=== PATIENT | male | born 1965 | race Caucasian/White ===

== ENCOUNTER → 2019-05-11 10:14 | Outpatient (CLI) | payer OTHER, SELFPAY ==
[2019-05-11 11:00] LABS: Basophils # 0.1 K/mm3 (0-0.2); Basophils % 0.8 % (0.1-2.0); Eosinophils # 0.3 K/mm3 (0.0-0.4); Eosinophils % 2.9 % (0.1-12.0); Hematocrit 46.9 % (42.0-52.0); Hemoglobin 15.9 g/dL (14.1-18.0); Lymphocytes # 3.3 K/mm3 (0.7-4.5); Mean Corpuscular HGB Conc 33.9 g/dL (31.8-35.4); Mean Corpuscular Hemoglobin 31.8 pg (27.0-31.2); Mean Corpuscular Volume 93.8 fl (80-94); Mean Platelet Volume 8.4 fl (7.4-10.4); Monocytes # 0.7 K/mm3 (0.1-1.0); Monocytes % 6.8 % (1.7-9.3); Neutrophils # 5.6 K/mm3 (1.8-7.8); Neutrophils % 56.5 % (37.0-80.0); Platelet Count 256 K/mm3 (142-424); Red Cell Distribution Width 13.5 % (11.5-17.5); White Blood Count 9.9 K/mm3 (4.8-10.8)
[2019-05-11 11:29] LABS: Blood Urea Nitrogen 17 mg/dL (7-18); Carbon Dioxide 25 mmol/L (21.0-32.0); Creatinine,Serum 0.91 mg/dL (0.70-1.30); Estimated Glomerular Filt Rate 86 ml/min (>60); GFR (African American) 105 ML/MIN (>60); Glucose 106 mg/dL (74-106)
[2019-05-11 12:19] LABS: Anion Gap 14.4 mEq/L (5-15); Chloride 105 mmol/L (98-107); Potassium 4.4 mmoL/L (3.5-5.1); Sodium 140 mmol/L (136-145)
== END ==
PROVIDERS: PCP Family Medicine; Visit Provider Surgery
DX: Z01.818 Encounter for other preprocedural examination (principal); K40.90 Unilateral inguinal hernia, without obstruction or gangrene, not specified as recurrent
CPT/HCPCS: 36415; 80048; 85025

== ENCOUNTER → 2019-05-15 09:47 | Outpatient (CLI) | payer OTHER, SELFPAY ==
--- NOTE | 2019-05-15 09:59 | XR_ITS ---
PROCEDURE: XR CHEST 2V CLINICAL HISTORY: SMOKER, PRE OP Smoker, history of bronchitis COMPARISON: None made available FINDINGS: The cardiomediastinal silhouette and pulmonary vascularity are within normal limits. COPD with chronic changes. Blebs are present in the right apex. No lobar consolidation or collapse is evident. Degenerative changes are present in the thoracic spine. No acute bony abnormalities. IMPRESSION: COPD with chronic changes, no acute finding Dictated by: Filippo Spear MD 05/15/2019 18:03 Electronically signed by Filippo Spear MD in [place] 05/15/2019 18:03
== END ==
PROVIDERS: PCP Family Medicine; Visit Provider Surgery
DX: Z01.818 Encounter for other preprocedural examination (principal); K40.90 Unilateral inguinal hernia, without obstruction or gangrene, not specified as recurrent
CPT/HCPCS: 71046

== ENCOUNTER → 2019-08-17 09:50 | Outpatient (CLI) | payer OTHER, SELFPAY ==
[2019-08-17 11:43] LABS: Blood Urea Nitrogen 16 mg/dL (7-18); Creatinine,Serum 1.02 mg/dL (0.70-1.30); Estimated Glomerular Filt Rate 76 ml/min (>60); GFR (African American) 92 ML/MIN (>60)
== END ==
PROVIDERS: Visit Provider Surgery
DX: Z01.818 Encounter for other preprocedural examination (principal)
CPT/HCPCS: 36415; 82565; 84520

== ENCOUNTER → 2019-08-27 10:25 | Outpatient (CLI) | payer OTHER, SELFPAY ==
--- NOTE | 2019-08-27 10:33 | CT_ITS ---
PROCEDURE: CT PELVIS W CON CLINICAL INDICATION: rt inguinal pain after hernia surgery COMPARISON: No exams were available for comparison TECHNIQUE: Axial images obtained with sagittal and coronal reformats. All CT scans at the facility use one or more dose reduction, viz: automated exposure control, ma/kV adjustment per patient size (including targeted exams where dose is matched to indication, i.e. head), or iterative reconstruction technique. FINDINGS: Bony pelvis: There is evidence of deformity and flattening of the femoral heads bilaterally. There is associated overall widening of the acetabular fossa a especially on the left side and there is subchondral sclerosis along the roof of the left acetabulum. Also noted is mixed lucent and sclerotic areas in the subchondral left femoral head. Hips:See above. Sacrum/coccyx: Unremarkable as visualized. No acute fracture. Soft tissues:There is a clip at the right inguinal area and just anterior to the clip which is anterior to the right common femoral vein there is a hypodense rounded focus measuring 2.9 centimeters in greatest diameter. There is some stranding around this area as well. There is no associated air density within the probable fluid collection. The remainder of the soft tissues are unremarkable. Other findings: No other pertinent findings IMPRESSION: At the right inguinal surgical site there is perhaps a seroma or old hematoma with some residual edema or fibrosis. Abnormal hips with chronic appearing femoral head deformities which could be congenital. 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 Dictated by: Alexis Gary 08/27/2019 11:52 Electronically signed by Alexis Gary in [facility] 08/27/2019 11:52
== END ==
PROVIDERS: PCP Family Medicine; Visit Provider Surgery
DX: K40.90 Unilateral inguinal hernia, without obstruction or gangrene, not specified as recurrent (principal); Z87.19 Personal history of other diseases of the digestive system; Z98.890 Other specified postprocedural states
CPT/HCPCS: 72193; Q9967

== ENCOUNTER → 2021-02-18 10:14 | Outpatient (CLI) | payer OTHER, SELFPAY ==
--- NOTE | 2021-02-18 10:20 | XR_ITS ---
PROCEDURE: XR LUMBAR SPINE MIN 4V XR hip left 2-3 views with pelvis CLINICAL INDICATION: LUMBAGO W/ SCIATICA, LT SIDE COMPARISON: CT CT PELVIS W CON from 08/27/2019 CR XR HIP LT 2-3V W/PELVIS from 02/18/2021 FINDINGS: Five views of the lumbar spine are obtained. Moderate to severe degenerative change of L5-S1 with moderate diffuse degenerative change elsewhere throughout the lumbar spine. Moderate bilateral facet spondylosis of L4-5 and L5-S1. SI joints are normal. Slight levoscoliosis. Cholecystectomy clips are present. Views of the pelvis and left hip show chronic deformity of left femoral head consistent with changes of chronic avascular necrosis. Moderate to severe degenerative changes of both hip joints. Joint. SI joints are normal. No pelvic soft tissue abnormality. IMPRESSION: Moderate to severe degenerative change of L5-S1 with moderate diffuse degenerative change elsewhere throughout the lumbar spine and some bilateral facet spondylosis of L4-5 and L5-S1. Chronic deformity of the left femoral head consistent with changes of chronic avascular necrosis with moderate to severe degenerative changes of both hip joints. No acute fracture or dislocation of the pelvis or hips. Dictated by: Saulo Beck MD 02/18/2021 12:45 Saulo Beck MD in [facility] 02/18/2021 12:45
== END ==
LOC: RAD 10:16
PROVIDERS: PCP Family Medicine; Visit Provider Family Medicine
DX: M25.552 Pain in left hip (principal); M54.42 Lumbago with sciatica, left side
CPT/HCPCS: 72110; 73502

== ENCOUNTER → 2021-03-03 07:33 | Outpatient (CLI) | payer OTHER, SELFPAY ==
--- NOTE | 2021-03-03 07:43 | ECG_ITS ---
APPROVED REPORT Exam: Resting ECG HR:55 bpm ECG Measurements Heart Rate 55 AXES WI 158 P 59 QRSd 122 QRS 46 QT 428 T 56 QTc 409 Conclusion Sinus bradycardia Right bundle branch block Abnormal ECG Electronically signed by : Dudley Yeager, 03/03/2021 21:17:42
--- NOTE | 2021-03-03 07:44 | XR_ITS ---
PROCEDURE: XR CHEST 2V CLINICAL HISTORY: TOBACCO USE,SOB Smoker COMPARISON: DX XR CHEST 2V from 05/15/2019 FINDINGS: The cardiomediastinal silhouette and pulmonary vascularity are within normal limits. COPD with chronic changes. There are biapical blebs right more extensive than left. There is chronic coarsening of the bronchovascular markings which may be related to smoking related lung disease. Pleural thickening is noted on the right along the lateral hemithorax. No lobar consolidation or collapse. There are degenerative changes in the thoracic spine. No acute bony abnormalities. IMPRESSION: COPD with chronic changes. No change with no acute finding. Dictated by: Filippo Spear MD 03/03/2021 12:56 Filippo Spear MD in [place] 03/03/2021 12:56
[2021-03-03 07:58] LABS: Microscopic, Urine URINE MICROSCOPIC (MICROSCOPIC)
[2021-03-03 08:31] LABS: Appearance,Urine CLEAR (Clear); Bilirubin,Urine Negative (Negative); Blood, Urine Negative (Negative); Color,Urine YELLOW (Yellow); Glucose,Urine (UA) Negative (Negative); Ketones,Urine Negative (Negative); Leukocyte Esterase,Urine 1+ (Negative); Nitrate,Urine Negative (Negative); PH,Urine 5.5 (5.0-8.5); Protein,Urine Negative (Negative); Specific Gravity, Urine 1.025 (1.005-1.030)
[2021-03-03 08:40] LABS: Basophils # 0.1 K/mm3 (0-0.2); Basophils % 1.3 % (0.1-2.0); Eosinophils # 0.4 K/mm3 (0.0-0.4); Eosinophils % 3.9 % (0.1-12.0); Hematocrit 46.4 % (42.0-52.0); Hemoglobin 16.2 g/dL (14.1-18.0); Lymphocytes # 3.3 K/mm3 (0.7-4.5); Lymphocytes % 36.4 % (10-50); Mean Corpuscular HGB Conc 34.8 g/dL (31.8-35.4); Mean Corpuscular Hemoglobin 31.1 pg (27.0-31.2); Mean Corpuscular Volume 89.1 fl (80-94); Mean Platelet Volume 9.2 fl (7.4-10.4); Monocytes # 0.9 K/mm3 (0.1-1.0); Monocytes % 10.2 % (1.7-9.3); Neutrophils # 4.4 K/mm3 (1.8-7.8); Neutrophils % 48.2 % (37.0-80.0); Platelet Count 249 K/mm3 (142-424); Red Cell Distribution Width 13.7 % (11.5-17.5); White Blood Count 9.1 K/mm3 (4.8-10.8)
[2021-03-03 08:59] LABS: Chloride 106 mmol/L (98-107); Potassium 4.6 mmoL/L (3.5-5.1); Sodium 139 mmol/L (136-145)
[2021-03-03 09:02] LABS: Alanine Aminotransferase 23 U/L (12-78); Albumin Level 4.3 g/dl (3.5-5.0); Albumin/Globulin Ratio 1.4 (1.1-1.8); Alkaline Phosphatase 141 U/L (38-126); Anion Gap 13.6 mEq/L (5-15); Aspartate Amino Transferase 24 U/L (17-59); Bilirubin,Total 0.4 mg/dl (0.2-1.3); Blood Urea Nitrogen 13 mg/dl (9-20); Calcium 9.2 mg/dl (8.4-10.2); Carbon Dioxide 24 mmol/L (22.0-30.0); Estimated Glomerular Filt Rate 100 ml/min (>60); GFR (African American) 121 ML/MIN (>60); Globulin 3.1 g/dL (1.3-3.2); Glucose 131 mg/dl (74-100); Total Protein,Serum 7.4 g/dl (6.3-8.2)
[2021-03-03 09:08] LABS: RBC,Urine Occasional #/hpf (0-3)
[2021-03-03 09:09] LABS: Activated Partial Thrombo Time 26.8 seconds (22.8-30.6); Prothrombin Time 10.5 seconds (10.1-12.5)
[2021-03-03 09:47] LABS: INR 0.88 (0.9-1.1)
== END ==
PROVIDERS: PCP Family Medicine; Visit Provider Family Medicine
DX: Z01.818 Encounter for other preprocedural examination (principal); R79.1 Abnormal coagulation profile; N39.0 Urinary tract infection, site not specified
CPT/HCPCS: 36415; 71046; 80053; 81001; 85025; 85610; 85730; 87086; 93005

== ENCOUNTER → 2021-10-02 11:14 | Outpatient (CLI) | payer OTHER, SELFPAY ==
[2021-10-03 15:19] LABS: Covid-19 Nasal PCR Sendout Lex POSITIVE
== END ==
PROVIDERS: Visit Provider Nurse Practitioner
DX: U07.1 COVID-19 (principal)
CPT/HCPCS: C9803; U0004; U0005

== ENCOUNTER → 2022-10-01 10:16 | Outpatient (CLI) | payer BC, SELFPAY ==
--- NOTE | 2022-10-01 10:23 | XR_ITS ---
FINAL REPORT CLINICAL HISTORY: LT SHOULDER PAIN FINDINGS: LEFT SHOULDER Two views of the left shoulder were obtained. There is no acute fracture or dislocation. The joint spaces are intact. There is no soft tissue abnormality. IMPRESSION: No acute bony abnormality. Reviewed, Interpreted and Dictated by Artie Virk MD Transcribed by Hina Christiansen Authenticated and [facility]
== END ==
PROVIDERS: PCP Family Medicine; Visit Provider Family Medicine
DX: M25.512 Pain in left shoulder (principal)
CPT/HCPCS: 73030

== ENCOUNTER 2023-08-31 13:10 | Emergency (ER) | payer BC, SELFPAY ==
[2023-08-31 13:11] VITALS: BP 148/73; PULSE 68; RESP 16; TEMP 36.7; O2SAT 97; BMI 29.3
--- NOTE | 2023-08-31 13:44 | EXP.UTC ---
Discharge Plan Disposition Patient Disposition: Home, Self-Care Condition: Good Prescriptions Prescriptions: New azithromycin [Zithromax Z-Juan Carlos] 250 mg tablet See Rx Instructions .ROUTE .COMPLEX 5 Days Qty: 6 0RF Rx Instructions: For 250 mg dose pack: take 500 mg today (day 1), then 250 mg for 4 days (days 2-5) methylprednisolone [Medrol (Juan Carlos)] 4 mg tablets,dose pack See Rx Instructions .Route .COMPLEX 6 Days Qty: 21 0RF Rx Instructions: taper pack; Referrals Follow up/Referrals: Bean Pearl MD [Primary Care Provider] - See instructions Activity Restrictions/Add. Instructions Additional Instructions/Restrictions: *Monitor Temp, Over the counter Motrin or Tylenol as directed/as needed Tylenol every 4 hours and Motrin every 6 hours (as long as your family doctor has told you that you can take it) for fever or pain. and straight to ER if unable to lower temp less than 101.0 after medication given *Warm salt water gargles may help to soothe the throat *Throat Lozenges? *Warm fluids like tea with honey may help to soothe the throat? *Sleep elevated *Humidifier/Vaporizer Follow up IMMEDIATELY for new or worsening symptoms or no Noticeable improvement over the next 48-72 hours. 911 for difficulty breathing or swallowing Clinical Impressions Clinical Impression: Sinusitis Qualifiers: Sinusitis location: unspecified location Chronicity: unspecified Qualified Code(s): J32.9 - Chronic sinusitis, unspecified Instructions Patient Instructions: DI for Sinusitis, Sinusitis Discharge ED Provider: Destiny Robledo [facility] General Stated complaint: congestion, runny nose Mode of Arrival: Ambulatory Source of Information: Patient Limitations: No Limitations Time Seen by Provider: 08/31/23 13:44 Description of Symptoms (Recalled from Triage Doc. by RN): Complaint of congestion, runny nose and watery eyes since yesterday. HEENT Symptoms (Recalled from RN notes): Yes Resp Symptoms (Recalled from RN notes): No Skin Symptoms (Recalled from RN notes): No MS Symptoms (Recalled from RN notes): No Functional Status (Recalled from RN notes): wnl History of Present Illness Provider Complaint: Patient states that he has been having sinus congestion for over a week that got worse yesterday States that he has been having pain and pressure behind his eyes and even in his teeth Statse that feels like he has a URI or sinus infection Related Data Previous Rx's Medication Instructions Recorded azithromycin 250 mg tablet See Rx Instructions PO .COMPLEX 5 08/31/23 (Zithromax Z-Juan Carlos) days #6 tabs methylprednisolone 4 mg tablets in See Rx Instructions .Route 08/31/23 a dose pack (Medrol (Juan Carlos)) .COMPLEX 6 days #21 tabs Allergies Allergy/AdvReac Type Severity Reaction Status Date / Time BEE VENOM Allergy Intermediate S-SWELLS-OR Uncoded 09/10/19 09:55 AL/THROAT TETANUS TOXOID Allergy Intermediate SLEEP WALKS Uncoded 09/10/19 09:55 Worker's Comp Is this a Worker's Comp case?: No [facility] Disclaimer: The information contained in this section may have been updated after the patient was seen, as this information can be updated by other users. Social History Smoking Status: Current every day smoker tobacco type: cigarettes packs per day: 1 second hand exposure: No alcohol intake: never substance use type: denies use current occupational status: employed Travel in the last 8 weeks: None household members: spouse housing: house current occupational exposures/hazards: No caffeine: Yes ROS Obtained: Yes All systems reviewed & no additional complaints except as documented and Yes Systems reviewed as appropriate & no additional complaints except as documented Constitutional Constitutional: Reports system reviewed and no additional complaints, except as documented and Reports as per HPI Eyes Eyes: Reports system reviewed and no additional complaints, except as documented and Reports as per HPI ENT Ears, Nose, Mouth, and Throat: Reports system reviewed and no additional complaints, except as documented, Reports as per HPI, Reports sinus pain and Reports sinus pressure Cardiovascular Cardiovascular: Reports system reviewed and no additional complaints, except as documented and Reports as per HPI Respiratory Respiratory: Reports system reviewed and no additional complaints, except as documented and Reports as per HPI Gastrointestinal Gastrointestingal: Reports system reviewed and no additional complaints, except as documented and as per HPI Musculoskeletal Musculoskeletal: Reports system reviewed and no additional complaints, except as documented and Reports as per HPI Neurologic Neurologic: Reports system reviewed and no additional complaints, except as documented and Reports as per HPI Physical Exam General General appearance: alert and in no apparent distress ENT ENT exam: Present mucous membranes moist Expanded ENT Exam Nose exam: Present sinus tenderness Throat exam: Present tonsillar erythema Respiratory Respiratory exam: Present normal lung sounds bilaterally; Absent respiratory distress or wheezes Cardiovascular Cardiovascular exam: Present regular rate, normal rhythm and normal heart sounds Abdominal Exam Abdominal exam: Present soft and normal bowel sounds; Absent distention or tenderness Neurological Exam Neurological exam: Present alert, oriented X3 and normal gait Medical Decision Making Sharad Inquiry Pt receiving controlled substance: No Sharad was queried for this patient: No Vital Signs: 08/31/23 13:11 Temperature 98.1 F Temperature Source Oral Pulse Rate [Radial] 68 Respiratory Rate 16 Blood Pressure [Right Arm] 148/73 H Blood Pressure Mean [Right Arm] 98 Blood Pressure Source [Right Arm] Automatic Cuff Blood Pressure Position [Right Arm] Sitting 02 Sat by Pulse Oximetry 97 Oxygen Delivery Method Room Air
[2023-08-31 13:57] VITALS: BP 148/73; PULSE 68; RESP 16; TEMP 36.7; O2SAT 97
== END 2023-08-31 13:58 | disposition home or self-care (01) ==
PROVIDERS: Emergency Provider Nurse Practitioner; PCP Family Medicine
DX: J01.90 Acute sinusitis, unspecified (principal); R09.81 Nasal congestion; F17.210 Nicotine dependence, cigarettes, uncomplicated
CPT/HCPCS: 99204; 99212; G0463

== ENCOUNTER 2025-07-01 11:57 | Day surgery (SDC) | payer BC, SELFPAY ==
[2025-06-27 12:53] VITALS: BMI 29.2
--- NOTE | 2025-06-27 15:29 | EXP.HP ---
History of Present Illness *Admission Date: 07/01/25 *History of present illness: Mr. Saenz is a 60-year-old gentleman who is here for initial screening colonoscopy secondary to a positive Cologuard test. The examination is deemed medically necessary for screening colonoscopy. The patient has been seen, interviewed and examined prior to the procedure by both myself and the anesthesia provider. [facility] Disclaimer: The information contained in this section may have been updated after the patient was seen, as this information can be updated by other users. Medical History History of cataract Surgical History History of left hip replacement History of cholecystectomy H/O inguinal hernia repair Family History Other Family history of cancer Family history of diabetes mellitus type II Social History Smoking Status: Current every day smoker tobacco type: cigarettes packs per day: 1 second hand exposure: No alcohol intake: never substance use type: denies use current occupational status: employed Travel in the last 8 weeks?: None household members: spouse housing: house current occupational exposures/hazards: No caffeine: Yes Have you lived/traveled outside [place] in past 30 days?: No Contact w/someone who lives/traveled outside US past 30 days?: No Exposure to someone with infectious disease in past 14 days?: No Do you have a fever (greater than 100.4 F or 38 C)?: No Have you tested positive for COVID-19?: No Exposed to someone with COVID-19 in past 14 days?: No Do you have a sore throat?: No Do you have a cough?: No Do you have any weakness?: No Do you have any diarrhea?: No Are you experiencing any unusual bleeding?: No Do you have any muscle aches/pain?: No Do you have any abdominal pain?: No Are you experiencing loss of taste or smell?: No Other Medical History Have you received the Flu Vaccine for this season: No Have you received the Pneumonia Vaccine: No Review of Systems Review of Systems Review of systems (narrative): Negative *Cardiovascular Comments: Negative *Gastrointestinal Comments: Negative *Genitourinary Comments: Negative *Musculoskeletal Comments: Negative *Neurologic Comments: Negative Meds Home Medications and Allergies Home Medications ?Medication ?Instructions ?Recorded ?Confirmed ?Type sodium,potassium,mag sulfates 17.5 See Rx Instructions PO .COMPLEX 06/17/25 Rx gram-3.13 gram-1.6 gram oral soln #354 mL (Suprep Bowel Prep Kit) New Prescriptions to Start Prescriptions: Allergies Allergy/AdvReac Type Severity Reaction Status Date / Time bee venom protein (honey bee) Allergy Rash Verified 07/01/25 12:21 tetanus toxoid, adsorbed AdvReac Other Verified 07/01/25 12:21 Exam Data for Last 24 hours I & O for Last 24 hours: Intake & Output 06/24/25 06/25/25 06/26/25 06/27/25 23:59 23:59 23:59 23:59 Weight 198 lb *Routine HEENT Exam Head: Present normocephalic Eye: Present EOMI and PERRL ENT: Present mucous membranes moist *Routine Neck Exam Neck: Present supple *Routine Respiratory Exam Respiratory: Present CTA bilaterally *Routine Cardiovascular Exam Cardiovascular: Present RRR *Routine Abdominal Exam Abdominal: Present soft and normoactive bowel sounds; Absent tenderness *Routine Rectal Exam Rectal:: deferred *Routine Genitalia Exam Genitalia:: deferred *Routine Extremities Exam Extremities: Absent cyanosis, clubbing or edema *Routine Skin Exam Skin: Present warm; Absent rash *Routine Neurological Exam Neurological: Present alert and oriented X3 Assessment and Plan *Assessment and plan (1) Positive colorectal cancer screening using Cologuard test: Status: Acute Category: Medical Code(s): R19.5 - Other fecal abnormalities (2) Screening for colon cancer: Status: Acute Category: Medical Code(s): Z12.11 - Encounter for screening for malignant neoplasm of colon Plan A/P: 1. Positive Cologuard is the preprocedural diagnosis. The patient will be anesthetized/sedated using MAC sedation. The patient has been seen and examined. Cardiac and lung assessment prior to the examination is stable. Proceed with planned screening colonoscopy.
--- NOTE | 2025-07-01 07:14 | HMH.PROCNOTE ---
[facility] Procedure Note Date: 07/01/25 Time: 13:35 Procedure Note:: Colonoscopy Procedure Report: Colonoscopy with cold snare polypectomy Endoscopist: Dominguez Choudhary II, MD Referring physician: Bean Pearl MD Date of Procedure: July 01, 2025 Equipment: Olympus [id number] adult colonoscope Sedation: MAC sedation Indication: Mr. Saenz is a 60-year-old gentleman who is here for initial screening colonoscopy secondary to a positive Cologuard test. The patient reports no abdominal pain, weight loss, change in his bowel habits or rectal bleeding. He reports no family history of colon cancer. The examination is deemed medically necessary for screening colonoscopy. Procedure: Prior to the procedure, a history and physical exam was performed, and patient's medications and allergies were reviewed. The risks, benefits and alternatives of the sedation and procedure were discussed with the patient. All questions were answered and informed consent was obtained. The patient was brought to the procedure room. Patient identification and proposed procedure were verified by the physician and the nurse. The patient was placed in a left lateral decubitus position and the scope was passed under direct vision. Throughout the procedure, the patient's blood pressure, pulse, and oxygen saturations were monitored continuously. The colonoscopy was accomplished without difficulty. The patient tolerated the procedure well. Findings: On digital rectal examination there was normal rectal tone. There were no external hemorrhoids. The prostate was 2+, smooth, soft, symmetric without nodules. The colonoscope was introduced through the anal canal to the rectum and advanced to the cecum. The ileocecal valve and appendiceal orifice were identified. The scope was advanced a short distance into the ileum which appeared grossly normal. The scope was then withdrawn into the colon. The cecum, ascending and transverse colon and mucosa were grossly normal. There were 6 colon polyps (descending x 3 (3, 4 and 6 mm) and sigmoid x 3 (4, 4 and 7 mm)). These were all removed via cold snare polypectomy. There were scattered diverticuli throughout the descending and sigmoid colon (LEFT colon). The rectum itself was normal. Upon retroflexion within the rectum there were grade 1-2 internal hemorrhoids. The preparation was good throughout with Rebecca Preparation Score of 8 out of 9. The cecal time was 15 minutes. Impression: 1. Diminutive colonic polyps x 6 2. Left-sided diverticulosis 3. Grade 1-2 internal hemorrhoids Plan: I will follow-up the polyp histology and recommend repeat screening/surveillance colonoscopy again in 3 to 5 years based upon the pathology.
[2025-07-01 12:22] VITALS: BP 171/70; PULSE 61; RESP 18; TEMP 36.4; O2SAT 96
[2025-07-01] MEDS: LACTATED RINGERS 1000ML 1,000 ML 50 ML IV (12:29)
--- NOTE | 2025-07-01 12:39 | EXP.ANES.CKL ---
[facility] Disclaimer: The information contained in this section may have been updated after the patient was seen, as this information can be updated by other users. Medical History History of cataract Surgical History History of left hip replacement History of cholecystectomy H/O inguinal hernia repair Family History Other Family history of cancer Family history of diabetes mellitus type II Social History Smoking Status: Current every day smoker tobacco type: cigarettes packs per day: 1 second hand exposure: No alcohol intake: never substance use type: denies use current occupational status: employed Travel in the last 8 weeks?: None household members: spouse housing: house current occupational exposures/hazards: No caffeine: Yes Have you lived/traveled outside [place] in past 30 days?: No Contact w/someone who lives/traveled outside [place] past 30 days?: No Exposure to someone with infectious disease in past 14 days?: No Do you have a fever (greater than 100.4 F or 38 C)?: No Have you tested positive for COVID-19?: No Exposed to someone with COVID-19 in past 14 days?: No Do you have a sore throat?: No Do you have a cough?: No Do you have any weakness?: No Do you have any diarrhea?: No Are you experiencing any unusual bleeding?: No Do you have any muscle aches/pain?: No Do you have any abdominal pain?: No Are you experiencing loss of taste or smell?: No [facility] Anesthesia Checklist Patient Identification Patient Identification: Arm Band and Family Structural Data Admitted From: Home Planned Operative Procedure/s: Colonoscopy Consent for Planned Operative Procedure(s) Verified: Yes Verified Documents: Surgical Consent and History and Physical NPO Status Verified Time NPO: 00:00 Additional verifications Patient : No Anesthesia Reactions: No Hx Blood Transfusions: Yes Blood Transfusion Reaction: No Cephalosporin Allergy: No Previous Colonoscopy: No Airway Assessment Mallampati Score:: Class III C-Spine Mobility Assessed: Yes TMJ Mobility Assessed: Yes Dentition: Good Dentition Neurological Assessment Level of Consciousness: Awake, Alert, Appropriate and Follows Commands Hx Seizures: No Numbness or tingling in extremities: No Anesthesia Plan Anesthesia Risk discussed: Yes ASA Class: II Anesthesia Type: MAC
[2025-07-01 13:37] VITALS: BP 94/49; PULSE 62; RESP 16; TEMP 36.3; O2SAT 96
[2025-07-01 13:47] VITALS: BP 106/63; PULSE 67; RESP 16; O2SAT 97
[2025-07-01 13:57] VITALS: BP 106/64; PULSE 62; RESP 18; O2SAT 98
[2025-07-01 14:07] VITALS: BP 119/55; PULSE 62; RESP 18; O2SAT 100
[2025-07-01 14:35] VITALS: BP 119/62; PULSE 58; RESP 18; TEMP 36.3; O2SAT 99
== END 2025-07-01 14:35 | disposition home or self-care (01) ==
PROVIDERS: PCP Family Medicine; Visit Provider Internal Medicine Gastroenterology
PROC: 0DJD8ZZ Inspection of Lower Intestinal Tract, Via Natural or Artificial Opening Endoscopic (ICD-10-PCS; CPT 45378; principal; 2025-07-01 13:30)
DX: Z12.11 Encounter for screening for malignant neoplasm of colon (principal); D12.4 Benign neoplasm of descending colon; D12.5 Benign neoplasm of sigmoid colon; K57.30 Diverticulosis of large intestine without perforation or abscess without bleeding; K64.0 First degree hemorrhoids; K64.1 Second degree hemorrhoids; F17.210 Nicotine dependence, cigarettes, uncomplicated
CPT/HCPCS: 45385; J2003; J2704; J7120